=== PATIENT | female | born 1955 | race African-American/Black ===

== ENCOUNTER → 2017-03-16 | Outpatient (CLI) | payer BC ==
[~2017-03-16] MED LIST: ASPIRIN325 PO; CALTRATE-600 W1 EACH PO; DILTIAZEM HCL30 MG PO; DISOPYRAMIDE PO; ESTRACE1 MG; FLECAINIDE ACE100 MG PO; NO HOME MEDS; NORCO 5-325 TA1 EACH PO; OMEGA-31000 MG PO; [UNRECOGNIZED DRUG - OTHER]
== END ==
LOC: RAD 12:55
DX: Z12.31 Encounter for screening mammogram for malignant neoplasm of breast (principal)

== ENCOUNTER → 2017-03-29 | Outpatient (CLI) | payer BC | LOC: ULTRA 11:26 | DX: N63 Unspecified lump in breast (principal) ==

== ENCOUNTER 2017-04-03 13:03 | Emergency (ER) | payer BC ==
[~2017-04-03] VITALS: Ht 165.1 cm; Wt 86.2 kg
--- NOTE | ~2017-04-03 | EKG ---
[place] [address] [address] [facility] [place] [address] ELECTROCARDIOGRAM REPORT Name: CHRISTOPHER SCANLON Room #: [facility]#: [id number] Admission: 04/03/17 Attend Phys: Discharge: 04/03/17 Date of : 59 Report #: [id number] THIS REPORT FOR: //name// [facility] ED Test Date: 2017-04-03 Test Time: 13:07:21 Pat Name: CHRISTOPHER SCANLON Department: Room: Gender: Seam Steamer: SHAQU[place]LE : 1955 Requested By: Aj Wolfe Order Number: [id number] MD: Kranthi Lassiter Measurements Intervals [place] Rate: 95 P: 45 VA: 186 QRS: 3 QRSD: 98 T: 22 QT: 389 QTc: 489 Interpretive Statements Sinus rhythm Borderline prolonged QT interval Baseline wander in lead(s) II,III,aVF,V1,V2,V6 Compared to ECG 10/04/2011 03:04:26 No significant changes Electronically Signed On 04-04-2017 7:42:29 CDT by Kranthi Lassiter [email or web address] <ELECTRONICALLY SIGNED> By: Kranthi Lassiter MD, [facility] 04/04/17 0742 [id number] [id number] Kranthi Lassiter MD, [facility] /EPI
[2017-04-03 13:27] LABS: HEMATOCRIT 39.2 % (37.0-47.0); HEMOGLOBIN 12.9 gm/dL (12.0-15.0); MCH 28.5 pg (26.0-34.0); MCHC 33.1 g/dL (28.0-37.0); MCV 86.2 fL (80.0-100.0); PLATELET COUNT 237 thou/uL (150-400); RBC 4.55 mil/uL (4.20-5.00); RDW 13.8 % (10.5-14.5); WBC 7.1 thou/uL (4.0-11.0)
[2017-04-03 13:31] LABS: MANUAL DIFF YES
[2017-04-03 13:36] LABS: ANION GAP 9 mmol/L (7-16); BUN 12 mg/dL (7-18); CALCIUM 8.7 mg/dL (8.5-10.1); CHLORIDE 105 mmol/L (98-107); CO2 27 mmol/L (21-32); GLUCOSE 88 mg/dL (74-106); POTASSIUM 3.5 mmol/L (3.5-5.1); SODIUM 141 mmol/L (136-145)
[2017-04-03 13:42] LABS: APTT 31.3 Seconds (24.5-32.8); PROTIME 10.7 Seconds (9.3-11.4)
[2017-04-03 13:52] LABS: ABSOLUTE NEUTROPHILS 1.8 thou/uL (1.4-8.2); ATYPICAL LYMPHS 6 %; PLATELET ESTIMATE NORMAL; TOTAL CELL COUNT 100
[2017-04-03 13:56] LABS: ALBUMIN 3.6 g/dL (3.4-5.0); ALKALINE PHOSPHATASE 62 U/L (46-116); CK-MB MASS 0.7 ng/mL (<0.5-3.6); MAGNESIUM 1.8 mg/dL (1.8-2.4); NT-PRO BRAIN NAT PEPTIDE 20 pg/mL (<300); SGOT 14 U/L (15-37); SGPT 23 U/L (30-65); TOTAL BILIRUBIN 0.5 mg/dL (<0.1-1.0); TOTAL PROTEIN 7.2 g/dL (6.4-8.2); TROPONIN-I < 0.04 ng/mL (<0.04-0.07)
[2017-04-03] MEDS ORDERED: NAPROSYN500 MG PO (14:45)
[2017-04-03] MEDS ORDERED: FLONASE 0.05%50 MCG NASAL (14:45)
[2017-04-03] MEDS ORDERED: TESSALON PERLE100 MG PO (14:45)
[2017-04-03 15:12] VITALS: BP 137/78
== END 2017-04-03 15:14 | disposition home or self-care (01) ==
LOC: ER 13:03
PROVIDERS: Emergency Medicine
DX: R07.89 Other chest pain (principal); J30.89 Other allergic rhinitis; E66.9 Obesity, unspecified